=== PATIENT | male | born 1940 | race Caucasian/White ===

== ENCOUNTER 2018-01-28 14:04 | Emergency (ER) | payer BC, MEDICARE ==
[~2018-01-28] VITALS: Ht 195.6 cm; Wt 118.2 kg
[2018-01-28 14:08] VITALS: Ht 195.6 cm; Wt 118.2 kg
[2018-01-28] MEDS ORDERED: COUMADIN6 MG PO (14:10)
[2018-01-28] MEDS ORDERED: JANTOVEN6 MG PO (14:10)
[2018-01-28] MEDS ORDERED: SYNTHROID75 MCG PO (14:11)
[2018-01-28] MEDS ORDERED: KLOR-CON M2020 MEQ PO (14:11)
[2018-01-28] MEDS ORDERED: VOLTAREN75 MG PO (14:11)
[2018-01-28] MEDS ORDERED: LIPITOR40 MG PO (14:11)
[2018-01-28] MEDS ORDERED: FUROSEMIDE40 MG PO (14:12)
[2018-01-28] MEDS ORDERED: BAYER CHEWABLE81 MG PO (14:12)
[2018-01-28] MEDS ORDERED: COREG6.25 MG PO (14:12)
[2018-01-28] MEDS ORDERED: GLUCOSAMINE HC500 MG PO (14:12)
[2018-01-28] MEDS ORDERED: BUMEX2 MG (14:13)
[2018-01-28] MEDS ORDERED: FISH OIL 1,0001 CA1 PO (14:13)
[2018-01-28 14:28] LABS: BASOPHILS 0.2 % (0-2); EOSINOPHILS 0.3 % (0-7); IMMATURE GRANULOCYTES 2.4 % (0-5); LYMPHOCYTES 16.1 % (15-50); MCH 29.6 pg (26.0-34.0); MCHC 31.8 g/dL (31.0-37.0); MEAN PLATELET VOLUME 9.6 fL (7.4-10.4); PLATELET COUNT 235 10x3/uL (130-400); RDW 18.1 % (11.5-14.5); WBC 19.3 10x3/uL (4.8-10.8)
[2018-01-28 14:37] LABS: HEMATOCRIT 13.2 % (36.0-48.0); HEMOGLOBIN 4.2 g/dL (12-16); RBC 1.42 10x6/uL (4.00-5.40)
[2018-01-28 14:44] LABS: ALBUMIN 2.6 g/dL (3.4-5.0); ANION GAP 17.2 mmol/L (8-16); BILIRUBIN - TOTAL 0.29 mg/dL (0.2-1.3); CALCIUM 8.1 mg/dL (8.5-10.1); CREATININE - SERUM 1.5 mg/dL (0.6-1.3); MAGNESIUM - SERUM 2.4 mg/dL (1.8-2.4); POTASSIUM - SERUM 4.2 mmol/L (3.5-5.1); PROTEIN - SERUM 5.6 g/dL (6.4-8.2)
[2018-01-28 14:49] LABS: APTT 38.3 SECONDS (22.8-39.4)
[2018-01-28 14:52] LABS: INR 7.09 (0.85-1.17); PROTIME 59.9 SECONDS (11.6-15.0)
[2018-01-28 15:09] LABS: TROPONIN-I 0.046 ng/mL (0.000-0.060)
[2018-01-28 20:24] VITALS: BP 104/47
== END 2018-01-28 20:37 | disposition other institution (70) ==
LOC: D.ER 14:04 → EDSEX 14:04 → D.ER 20:37
PROVIDERS: Emergency Medicine
DX: D64.9 Anemia, unspecified (principal); T45.515A Adverse effect of anticoagulants, initial encounter; Y92.019 Unspecified place in single-family (private) house as the place of occurrence of the external cause; K92.2 Gastrointestinal hemorrhage, unspecified; R53.1 Weakness; I11.0 Hypertensive heart disease with heart failure; I50.9 Heart failure, unspecified; Z95.0 Presence of cardiac pacemaker

== ENCOUNTER 2018-12-27 16:13 | Emergency (ER) | payer BC, MEDICARE ==
[~2018-12-27] VITALS: Ht 195.6 cm; Wt 115.9 kg
[~2018-12-27 16:13] MED LIST: BAYER CHEWABLE81 MG PO; BUMEX2 MG; COREG6.25 MG PO; COUMADIN6 MG PO; FISH OIL 1,0001 CA1 PO; FUROSEMIDE40 MG PO; GLUCOSAMINE HC500 MG PO; JANTOVEN6 MG PO; KLOR-CON M2020 MEQ PO; LIPITOR40 MG PO; SYNTHROID75 MCG PO; VOLTAREN75 MG PO
[2018-12-27 16:25] VITALS: BP 116/63; Ht 195.6 cm; Wt 115.9 kg
[2018-12-27] MEDS ORDERED: ELIQUIS5 MG PO (16:30)
[2018-12-27] MEDS ORDERED: SYNTHROID150 MCG PO ×2 (16:32→16:33)
[2018-12-27] MEDS ORDERED: HYDROPHILIC (16:35)
[2018-12-27] MEDS ORDERED: HYDROCODONE-A1 UDTA2 PO (18:12)
[2018-12-27] MEDS ORDERED: VIBRAMYCIN 100100 MG PO (18:12)
== END 2018-12-27 18:43 | disposition home or self-care (01) ==
LOC: D.ER 16:13
DX: S51.012A Laceration without foreign body of left elbow, initial encounter (principal); W17.89XA Other fall from one level to another, initial encounter

== ENCOUNTER 2019-01-08 08:41 | Emergency (ER) | payer BC ==
[~2019-01-08] VITALS: Ht 195.6 cm; Wt 113.6 kg
[~2019-01-08 08:41] MED LIST changes: +ELIQUIS5 MG PO; +HYDROCODONE-A1 UDTA2 PO; +HYDROPHILIC; +SYNTHROID150 MCG PO; +VIBRAMYCIN 100100 MG PO
[2019-01-08 08:46] VITALS: BP 136/71; Ht 195.6 cm; Wt 113.6 kg
[2019-01-08] MEDS ORDERED: CLEOCIN HCL300 MG PO (09:56)
== END 2019-01-08 11:06 | disposition home or self-care (01) ==
LOC: D.ER 08:41
DX: L03.114 Cellulitis of left upper limb (principal)